=== PATIENT | female | born 2000 | race Caucasian/White ===

== ENCOUNTER 2021-02-24 23:35 | Emergency (ER) | payer OTHER, SELFPAY ==
[2021-02-24 23:44] VITALS: BP 135/73; PULSE 98; RESP 16; TEMP 37.3; O2SAT 100
[2021-02-25 00:06] LABS: Alanine Aminotransferase 17 U/L (4-35); Albumin Level 4.7 g/dL (3.5-5.1); Alkaline Phosphatase 92 U/L (38-126); Anion Gap 8 mmol/L (8-16); Aspartate Amino Transferase 30 U/L (14-36); Basophils Percent Auto 0.4 % (0.2-1.2); Blood Urea Nitrogen 10 mg/dL (7-17); Calcium 8.8 mg/dL (8.4-10.2); Carbon Dioxide 25 mmol/L (22-30); Chloride 101 mmol/L (98-107); Eosinophils Absolute Auto 0.1 K/mm3 (0-0.3); Eosinophils Percent Auto 0.6 % (0-4.4); Estimated CRCL calculation 85 ml/min; Estimated Glomerular Filt Rate > 60; Glucose 105 mg/dL (65-110); Hematocrit 41.6 % (37.0-47.0); Hemoglobin 13.2 g/dL (12.0-15.0); Immature Granulocyte Absolute 0.03 K/mm3 (0.00-0.031); Immature Granulocyte Percent A 0.3 % (0-0.5); Lymphocytes Absolute Auto 1.61 K/mm3 (0.9-3.2); Lymphocytes Percent Auto 14.8 % (18.3-44.2); Mean Corpuscular HGB Conc 31.7 g/dl (32-36); Mean Corpuscular Hemoglobin 29.7 pg (26-34); Mean Corpuscular Volume 93.7 fl (80-100); Mean Platelet Volume 10.4 fl (7.4-10.4); Monocytes Absolute Auto 0.6 K/mm3 (0.1-0.6); Monocytes Percent Auto 5.8 % (2.6-8.5); Neutrophils Absolute Auto 8.5 K/mm3 (1.3-6.7); Neutrophils Percent Auto 78.1 % (45.5-73.1); Platelet Count Result 238 k/mm3 (150-375); Potassium 3.6 mmol/L (3.4-5.0); Red Blood Count 4.44 M/mm3 (4.2-5.4); Red Cell Distribution Width 12.2 % (11.5-14.5); Sodium 134 mmol/L (137-145); White Blood Count 10.9 K/mm3 (4.5-10.0)
[2021-02-25 00:19] LABS: Add Urine Microscopic? NO; Appearance Urine Clear (Clear); Bilirubin Urine Negative (Negative); Blood Urine Negative (Negative); Color Urine Colorless (Yellow); Glucose Urine UA Negative (Negative); Ketones Urine Negative (Negative); Leukocyte Esterase Ur Negative LEU/UL (Negative); Nitrate Urine Negative (Negative); Protein Urine Negative (Negative); Urobilinogen Urine Negative mg/dL (<2.0)
[2021-02-25 00:34] LABS: Specific Grav Ur 1.002 (1.001-1.035)
[2021-02-25 01:47] VITALS: BP 135/78; PULSE 68; RESP 18; TEMP 37.3; O2SAT 100
--- NOTE | 2021-02-25 02:33 | ED.GENADULT ---
HPI - General Adult General Chief complaint: Fever Stated complaint: Miscarriage last week chills and fever today Time Seen by Provider: 02/25/21 01:20 History of Present Illness HPI narrative: Patient is a 21-year-old female presents the emergency department with chief complaint of fever. The patient reports that she recently had a miscarriage and was seen at [place] for this. The patient states that she started having chills and body aches today reports she has not been vaccinated for Covid. Patient reports that she is actually feeling much better at this time reports that she is still having some dark whitish discharge from her vagina but most of the bleeding has decreased. Patient denies pelvic pain reports that the cramping has improved from whenever she was miscarrying. Patient denies back pain denies chest pain or shortness of breath. Review of Systems Review of Systems: A 10 system review of systems was completed on the patient and is negative except for what is stated in the HPI. Nursing and ancillary documentation was reviewed. [facility] Social History Social History Gender identity (if verbalized by the patient): Female Exam Narrative: GENERAL: Well-appearing, well-nourished, and in no acute distress. HEAD: Normocephalic, atraumatic. EYES: PERRLA and EOMI. ENT: Nares clear, no rhinorrhea or epistaxis. Mucous membranes moist. NECK: Supple. CHEST: Clear to auscultation. No respiratory distress. HEART: Regular rate and rhythm. No murmur heard. Normal peripheral pulses. ABDOMEN: Soft, nontender, nondistended, normal active bowel sounds. : Pelvic exam showed scant amount of old blood in the vaginal vault. There is no purulent drainage. EXTREMITIES: Normal range of motion. No edema. SKIN: Warm, dry, no rash. NEURO: No focal deficits. Alert and oriented x3. PSYCH: Normal mood and affect. Course Vital Signs Vital signs: Vital Signs Temperature 37.3 C 02/24/21 23:44 Pulse Rate 98 02/24/21 23:44 Respiratory Rate 16 02/24/21 23:44 Blood Pressure 135/73 02/24/21 23:44 Pulse Oximetry 100 02/24/21 23:44 Temperature 37.3 C 02/25/21 01:47 Pulse Rate 68 02/25/21 01:47 Respiratory Rate 18 02/25/21 01:47 Blood Pressure 135/78 02/25/21 01:47 Pulse Oximetry 100 02/25/21 01:47 Medical Decision Making Vital Signs Vital Signs: Vital Signs Temperature 37.3 C 02/24/21 23:44 Pulse Rate 98 02/24/21 23:44 Respiratory Rate 16 02/24/21 23:44 Blood Pressure 135/73 02/24/21 23:44 Pulse Oximetry 100 02/24/21 23:44 Temperature 37.3 C 02/25/21 01:47 Pulse Rate 68 02/25/21 01:47 Respiratory Rate 18 02/25/21 01:47 Blood Pressure 135/78 02/25/21 01:47 Pulse Oximetry 100 02/25/21 01:47 Lab Data Result diagrams: 02/24/21 23:45 02/24/21 23:45 Labs: Lab Results 02/24/21 02/24/21 02/25/21 Range/Units 23:45 23:45 00:05 WBC 10.9 H (4.5-10.0) K/mm3 RBC 4.44 (4.2-5.4) M/mm3 Hgb 13.2 (12.0-15.0) g/dL Hct 41.6 (37.0-47.0) % MCV 93.7 (80-100) fl MCH 29.7 (26-34) pg MCHC 31.7 L (32-36) g/dl RDW 12.2 (11.5-14.5) % Plt Count 238 (150-375) k/mm3 MPV 10.4 (7.4-10.4) fl Immature Gran % (Auto) 0.3 (0-0.5) % Neut % (Auto) 78.1 H (45.5-73.1) % Lymph % (Auto) 14.8 L (18.3-44.2) % Bent % (Auto) 5.8 (2.6-8.5) % Eos % (Auto) 0.6 (0-4.4) % Baso % (Auto) 0.4 (0.2-1.2) % Lymph # (Auto) 1.61 (0.9-3.2) K/mm3 Bent # (Auto) 0.6 (0.1-0.6) K/mm3 Eos # (Auto) 0.1 (0-0.3) K/mm3 Baso # (Auto) 0.0 (0.0-0.1) K/mm3 Abs Immat Gran (auto) 0.03 (0.00-0.031) K/mm3 Absolute Neuts (auto) 8.5 H (1.3-6.7) K/mm3 Absolute Nucleated RBC 0.0 (0.0-0.012) K/mm3 Nucleated RBC % 0.0 (0.0-0.2) % Sodium 134 L (137-145) mmol/L Potassium 3.6 (3.4-5.0) mmol/L Chloride 101 (98-107)
[2021-02-25 21:10] LABS: SARS-CoV-2 RNA PCR Negative
== END 2021-02-25 02:46 | disposition home or self-care (01) ==
PROVIDERS: Emergency Medicine; Emergency Provider Emergency Medicine; PCP Family Medicine
DX: B34.9 Viral infection, unspecified (principal); Z20.822 Contact with and (suspected) exposure to COVID-19
CPT/HCPCS: 36415; 80053; 81003; 81025; 85025; 87070; 87491; 87591; 87808; 99284; C9803; U0003; U0005